=== PATIENT | male | born 1980 | race Caucasian/White ===

== ENCOUNTER 2018-09-10 11:47 | Emergency (ER) | payer MEDICAID, OTHER ==
--- NOTE | 2018-09-10 15:12 | ED ---
Back Pain - HPI Summary HPI Summary: Patient is a 38 y/o M presenting to ED with complaints of lower back pain s/p fall two days ago. He states that he slipped and fell down around 3-4 wooden stairs at home, caught himself on railing and in the process "tweaked" his lower back. No SOB, no chest pain, no neck pain, no upper back pain, no dysuria no hematuria, no head injury, no numbness, no tingling, no abdominal pain. Patient has taken ibuprofen with some relief, movement and deep breaths aggravates pain. No Hx of kidney problems. In room, he rates pain 5/10. He denies radiation of pain. 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 PSHx of right broken wrist repair. He smokes cigarettes, rare alc usage, no recreational drug usage. FMHx of cardiac disease. Patient arrived via private vehicle. He denies daily medications. Home medications, allergies, and nurse's notes reviewed. PCP is Dr. Reed, provider in room at 1500. Allergies Allergy/AdvReac Type Severity Reaction Status Date / Time No Known Allergies Allergy Verified 09/10/18 12:01 - History of Current Complaint Chief Complaint: EDBackInjuryPain Stated Complaint: BACK PAIN Time Seen by Provider: 09/10/18 15:00 Hx Obtained From: Patient Onset/Duration: Sudden Onset, Lasting Days - fall occurred two days ago, Still Present Onset/Duration: Started Days Ago - back pain onset two days ago, Still Present Timing: Constant Back Pain Location: Is Discrete @ - lower back Severity Initially: Severe Severity Currently: Moderate - 5/10 in room Pain Intensity: 5 Pain Scale Used: 0-10 Numeric - 5/10 Character: Dull, Aching Aggravating Symptom(s): Movement, Other - deep breaths Alleviating Symptom(s): OTC Meds - ibuprofen Associated Signs And Symptoms: Positive: Other - No SOB, no chest pain, no neck pain, no upper back pain, no dysuria no hematuria, no head injury, no numbness, no tingling, no abdominal pain. Negative: Numbness, Tingling, Abdominal Pain - Allergies/Home Medications Allergies/Adverse Reactions: Allergies Allergy/AdvReac Type Severity Reaction Status Date / Time No Known Allergies Allergy Verified 09/10/18 12:01 PMH/Surg Hx/FS Hx/Imm Hx Previously Healthy: Yes Endocrine/Hematology History: Denies: Hx Diabetes Cardiovascular History: Denies: Hx Hypertension, Hx Pacemaker/ICD History: Denies: Hx Renal Disease Musculoskeletal History: Reports: Hx Back Problems - neck pain with left arm pain Sensory History: Denies: Hx Hearing Aid Neurological History: Reports: Hx Migraine Psychiatric History: Reports: Hx Depression Denies: Hx Panic Disorder - Surgical History Surgery Procedure, Year, and Place: R WRIST - FX - W/ [facility] Infectious Disease History: No Infectious Disease History: Denies: Traveled Outside the [place] in Last 30 Days - Family History Known Family History: Positive: Cardiac Disease, Hypertension - Social History Occupation: Employed Full-time Lives: With Family Alcohol Use: Rare Substance Use Type: Reports: None Smoking Status (MU): Heavy Every Day Tobacco Smoker Type: Cigarettes Have You Smoked in the Last Year: Yes Review of Systems Constitutional: Negative Negative: Chest Pain Negative: Shortness Of Breath Negative: Abdominal Pain Positive: no symptoms reported. Negative: dysuria, hematuria Musculoskeletal: Other - NEGATIVE - NECK PAIN, UPPER BACK PAIN; POSITIVE - LOWER BACK PAIN Skin: Negative Neurological: Other - NEGATIVE - HEAD INJURY, TINGLING Negative: Numbness Psychological: Normal All Other Systems Reviewed And Are Negative: Yes Physical Exam - Summary Physical Exam Summary: Appearance: Well-appearing, moderate pain distress, well-nourished Skin: Warm, color reflects adequate perfusion, dry Head: Normal Head/Face inspection, atraumatic Eyes: Conjunctiva clear, PERRL, EOMI, no nystagmus ENT: Normal inspection Neck: Supple, no nodes, no JVD, no spinal tenderness Respiratory: Lungs clear, normal breath sounds, no respiratory distress Cardio: RRR, No murmur, pulses normal, brisk capillary refill Abdomen: Soft, nontender Bowel sounds: Present Musculoskeletal: Strength Intact/ROM intact, no calf tenderness, no edema. Lower lumbar paraspinous pain is noted. Psychological: Normal Neuro: A&O x3, CN II-XII intact, motor function 5/5, sensation intact, cerebellar normal, gait is normal, able to walk on heels and toes Triage Information Reviewed: Yes Vital Signs On Initial Exam: Initial Vitals Temp Pulse Resp BP Pulse Ox 99.3 F 104 16 139/98 97 09/10/18 11:58 09/10/18 11:58 09/10/18 11:58 09/10/18 11:58 09/10/18 11:58 Vital Signs Reviewed: Yes Diagnostics - Vital Signs Vital Signs Temp Pulse Resp BP Pulse Ox 09/10/18 14:52 99.5 F 87 16 0/0 99 09/10/18 11:58 99.3 F 104 16 139/98 97 - Laboratory Lab Statement: Any lab studies that have been ordered have been reviewed, and results considered in the medical decision making process. Back Pain Course/Dx - Course Course Of Treatment: Patient is a 38 y/o M presenting to ED with complaints of lower back pain s/p fall two days ago. He states that he slipped and fell down around 3-4 wooden stairs at home, caught himself on railing and in the process "tweaked" his lower back. No SOB, no chest pain, no neck pain, no upper back pain, no dysuria no hematuria, no head injury, no numbness, no tingling, no abdominal pain. Patient has taken ibuprofen with some relief, movement and deep breaths aggravates pain. No Hx of kidney problems. In room, he rates pain 5/10. He denies radiation of pain. 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 PSHx of right broken wrist repair. He smokes cigarettes, rare alc usage, no recreational drug usage. FMHx of cardiac disease. Patient arrived via private vehicle. He denies daily medications. Home medications, allergies, and nurse's notes reviewed. PCP is Dr. Reed, provider in room at 1500. On physical exam, patient is A&O x3, CN II-XII intact , motor function 5/5, sensation intact, cerebellar normal, gait is normal, able to walk on heels. Moderate pain distress is noted. Urine was obtained and sent for analysis. 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 He declines stronger pain medication and states he will continue to use ibuprofen. Patient is agreeable with discharge to home with work release note and PCP follow up. - Diagnoses Provider Diagnoses: Fall, Lumbar strain Discharge - Sign-Out/Discharge Documenting (check all that apply): Patient Departure - discharge Patient Received Moderate/Deep Sedation with Procedure: No - NO PROCEDURES DONE - Discharge Plan Condition: Stable Disposition: HOME Patient Education Materials: Low Back Strain (ED) Forms: *Work Release Referrals: Leila Reed MD [Primary Care Provider] - 2 Days Additional Instructions: The urinalysis result is pending at the time of your discharge. Return to the ER if you have new or worsening symptoms. - Billing Disposition and Condition Condition: STABLE Disposition: Home - Attestation Statements Document Initiated by Rajanie: Yes Documenting Scribe: PERRY PHELPS Provider For Whom Polina is Documenting (Include Credential): JOSEPH KINCAID MD Scribe Attestation: PERRY rTacy , scribed for JOSEPH KINCAID MD on 09/16/18 at 0104. Scribe Documentation Reviewed: Yes Provider Attestation: The documentation as recorded by the PERRY french accurately reflects the service I personally performed and the decisions made by me, JOSEPH KINCAID MD Status of Scribe Document: Viewed
[2018-09-10 15:30] VITALS: BP 138/90
[2018-09-10 15:38] LABS: Urine Appearance Clear; Urine Bilirubin Negative (Negative); Urine Blood Negative (Negative); Urine Color Yellow; Urine Glucose Negative (Negative); Urine Ketones Negative (Negative); Urine Nitrite Negative (Negative); Urine Protein Negative (Negative); Urine Specific Gravity 1.014 (1.010-1.030); Urine Urobilinogen Negative (Negative)
== END 2018-09-10 15:30 | disposition home or self-care (01) ==
LOC: ED 11:47
DX: S39.012A Strain of muscle, fascia and tendon of lower back, initial encounter (principal); F17.210 Nicotine dependence, cigarettes, uncomplicated; F32.9 Major depressive disorder, single episode, unspecified; W19.XXXA Unspecified fall, initial encounter; Y92.9 Unspecified place or not applicable
CPT/HCPCS: 81003; 99282

== ENCOUNTER 2019-04-14 09:52 | Emergency (ER) | payer OTHER ==
--- NOTE | 2019-04-14 10:11 | ED ---
Back Pain - HPI Summary HPI Summary: 39 year old M presenting to [facility] complains of non-radiating paraspinal muscle pain in the lumbar spine rated 10/10 in severity since waking up this morning. Patient ambulated from the waiting room to ED Room 3. 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 Patient denies urinary or fecal dysfunction, numbness/weakness in lower extremities. Symptoms aggravated by breathing and ambulation. Symptoms alleviated by nothing. PMHX: chronic upper back pain and upper neck pain. Patient states he takes gabapentin. Surgical hx: right wrist. FHx: maternal hypertension. Admits to smoking and alcohol. Denies drugs. - History of Current Complaint Chief Complaint: EDBackInjuryPain Stated Complaint: BACK PAIN PER PT Time Seen by Provider: 04/14/19 09:59 Hx Obtained From: Patient Onset/Duration: Lasting Hours, Still Present Onset/Duration: Started Hours Ago, Still Present Timing: Constant Severity Currently: Severe Pain Intensity: 10 Pain Scale Used: 0-10 Numeric Aggravating Symptom(s): Other - breathing, ambulation Alleviating Symptom(s): Nothing Associated Signs And Symptoms: Positive: Negative - urinary or fecal dysfunction , numbness/weakness in lower extremities - Allergies/Home Medications Allergies/Adverse Reactions: Allergies Allergy/AdvReac Type Severity Reaction Status Date / Time No Known Allergies Allergy Verified 04/14/19 10:02 Home Medications: Home Medications Gabapentin [Neurontin] 600 mg PO BEDTIME 04/14/19 [History Confirmed 04/14/19] PMH/Surg Hx/FS Hx/Imm Hx Endocrine/Hematology History: Denies: Hx Diabetes Cardiovascular History: Denies: Hx Hypertension History: Denies: Hx Renal Disease Musculoskeletal History: Reports: Hx Back Problems - upper back pain, neck pain Neurological History: Reports: Hx Migraine Psychiatric History: Reports: Hx Depression - Surgical History Surgery Procedure, Year, and Place: R WRIST - FX - W/ [facility] Infectious Disease History: No Infectious Disease History: Denies: Traveled Outside the [place] in Last 30 Days - Family History Known Family History: Positive: Cardiac Disease, Hypertension - Social History Alcohol Use: Weekly Hx Substance Use: No Substance Use Type: Reports: None Hx Tobacco Use: Yes Smoking Status (MU): Heavy Every Day Tobacco Smoker Type: Cigarettes Have You Smoked in the Last Year: Yes Review of Systems Gastrointestinal: Negative - fecal dysfunction Genitourinary: Negative - urinary dysfunction Positive: Other - paraspinal muscle pain in the lumbar spine bilaterally Negative: Weakness, Numbness All Other Systems Reviewed And Are Negative: Yes Physical Exam - Summary Physical Exam Summary: VITAL SIGNS: Reviewed. GENERAL: Patient is a well-developed and nourished MALE who is lying comfortable in the stretcher. Patient is not in any acute respiratory distress. HEAD AND FACE: No signs of trauma. No ecchymosis, hematomas or skull depressions. No sinus tenderness. EYES: PERRLA, EOMI x 2, No injected conjunctiva, no nystagmus. EARS: Hearing grossly intact. Ear canals and tympanic membranes are within normal limits. MOUTH: Oropharynx within normal limits. NECK: Supple, trachea is midline, no adenopathy, no JVD, no carotid bruit, no c- spine tenderness, neck with full ROM. CHEST: Symmetric, no tenderness at palpation. LUNGS: Clear to auscultation bilaterally. No wheezing or crackles. CVS: Regular rate and rhythm, S1 and S2 present, no murmurs or gallops appreciated. ABDOMEN: Soft, non-tender. No signs of distention. No rebound, no guarding, and no masses palpated. Bowel sounds are normal. BACK: Patient walked in to the EM room with symmetric ambulation, No signs of limping, antalgic, able to bear weight. No signs of trauma, no soft tissue ecchymosis. Positive paraspinal muscle tenderness in the lumbar spine. No masses palpated. No point tenderness. No CVAT, no flank ecchymosis . No sacroiliac notch tenderness, No saddle anesthesia. ROM: flexion, extension, lateral bending and rotation limited secondary to pain. Straight Leg Raise: Negative. Patellar reflexes: brisk, symmetric Muscle strength lower extremities: Dorsiflexion, plantar flexion of ankles normal. Heel, toe walk normal. Pulses: Femoral, popliteal, posterior tibial, and pedal pulses strong and palpable. Rectal: Patient refused the exam. EXTREMITIES: FROM in all major joints, no edema, no cyanosis or clubbing. NEURO: Alert and oriented x 3. No acute neurological deficits. Speech is normal and follows commands. SKIN: Dry and warm. Triage Information Reviewed: Yes Vital Signs On Initial Exam: Initial Vitals Temp Pulse Resp BP Pulse Ox 98.2 F 86 18 154/129 100 04/14/19 09:53 04/14/19 09:53 04/14/19 09:53 04/14/19 09:53 04/14/19 09:53 Vital Signs Reviewed: Yes Diagnostics - Vital Signs Vital Signs Temp Pulse Resp BP Pulse Ox 04/14/19 09:53 98.2 F 86 18 154/129 100 - Laboratory Lab Statement: Any lab studies that have been ordered have been reviewed, and results considered in the medical decision making process. - Radiology Lumbar spine x-ray Radiology Interpretation Completed By: Radiologist Summary of Radiographic Findings: No fracture of the lumbar spine is noted. ED physician has reviewed this report. Re-Evaluation - Re-Evaluation First Eval Re-Evaluation Time: 11:48 Change: Improved Comment: patient feels better after medications. he is agreeable to discharge Back Pain Course/Dx - Course Assessment/Plan: This patient is a 39-year-old male who presents to the emergency department with a chief complaint of having back pain. He reports that yesterday, he did a lot of heavy lifting and used heavy machinery which is consistent with the patient having lower back pain. He denies any urinary or fecal dysfunction. In the ED course, the patient is able to ambulate without any difficulty. The patient was also able to stand and sit without any difficulty. In the physical exam, the patient has paraspinal muscle tenderness. X-ray of the lumbar spine: No fracture of the lumbar spine noted. In the ED, the patient was given Toradol, Decadron, Flexeril and [place]. After these medications, the symptoms have improved. At this point, I discussed all the findings and test results with the patient. Patient will be discharged home with f/u from PCP. Patient was instructed to return to the emergency room immediately if any of the symptoms return or worsen. Patient understands and agrees. Patient is able to ambulate freely w/o aid or limp in the ER. Plan of care was discussed with the patient and patient understands and agrees. All questions were answered at patient satisfaction. There were no further complaints or concerns. Neurological exam before discharge: Patient is alert and oriented x 3. No acute neurological deficits. Patient is hemodynamically stable. Patient is to follow up with primary care physician in the next 2 3 days. He understands and agrees. - Diagnoses Differential Diagnosis/HQI/PQRI: Positive: Arthritis, Cauda Equina Syndrome, Compressive Cord Syndrome, Fracture, Herniated Disc, Strain, Sprain Provider Diagnoses: Back pain Discharge ED - Sign-Out/Discharge Documenting (check all that apply): Patient Departure Patient Received Moderate/Deep Sedation with Procedure: No - Discharge Plan Condition: Stable Disposition: HOME Prescriptions: Ibuprofen TAB* [Motrin TAB* 800 MG] 800 mg PO TID #30 tab Methocarbamol TAB* [Robaxin 500 MG TAB*] 500 mg PO TID PRN #12 tab PRN Reason: Spasms - Back methylPREDNISolone [Medrol Dosepak 4 MG*] 0 mg PO .SEE LEWIS INSTRUCTION #1 lewis Patient Education Materials: Back Pain (ED) Forms: *Work Release Referrals: Leila Reed MD [Primary Care Provider] - 3 Days Additional Instructions: Follow up with your primary care provider in 3 days. RETURN TO EMERGENCY DEPARTMENT FOR NEW OR WORSENING SYMPTOMS. - Billing Disposition and Condition Condition: STABLE Disposition: Home - Attestation Statements Document Initiated by Scribe: Yes Documenting Scribe: Latoya Jones Provider For Whom Rajanie is Documenting (Include Credential): Kuldip Bo MD Scribe Attestation: Latoya Tracy, scribed for Kuldip Bo MD on 04/18/19 at 1158. Scribe Documentation Reviewed: Yes Provider Attestation: The documentation as recorded by the scribeLatoya accurately reflects the service I personally performed and the decisions made by me, Kuldip Bo MD Status of Scribe Document: Viewed
[2019-04-14] MEDS ORDERED: HYDROcodone/ACETAMIN 5-325 MG* 1 TAB PO ONE (10:18)
[2019-04-14] MEDS ORDERED: Ketorolac *IM* INJ* 60 MG/2 ML VIAL IM ONE (10:18)
[2019-04-14] MEDS ORDERED: Dexamethasone IV* 4 MG/ML 1 ML (4 MG) IM ONE (10:18)
[2019-04-14] MEDS ORDERED: Cyclobenzaprine TAB* 10 MG PO ONE (10:18)
[2019-04-14 11:59] VITALS: BP 151/97
== END 2019-04-14 11:57 | disposition home or self-care (01) ==
LOC: ED 09:52
DX: M54.9 Dorsalgia, unspecified (principal); F32.9 Major depressive disorder, single episode, unspecified; F17.200 Nicotine dependence, unspecified, uncomplicated; Z79.899 Other long term (current) drug therapy
CPT/HCPCS: 72100; 96372; 99282; A9270-GY; J1100; J1885